=== PATIENT | female | born 1995 | race Caucasian/White ===

== ENCOUNTER 2016-11-19 15:08 | Emergency (ER) | payer OTHER ==
--- NOTE | 2016-11-19 15:39 | EDDOCDS ---
Physician Documentation [facility] Name: Ayaz Lott Age: 21 yrs Sex: Female : 1995 Arrival Date: 11/19/2016 Time: 15:08 Bed Triage 1 Private MD: Dustin Sheth D Disposition: 11/19/16 15:33 Discharged to Home/Self Care. Impression: 28 weeks gestation of . - Condition is Stable. - Discharge Instructions: Third Trimester of , [id number]. - Medication Reconciliation, Local Pharmacy Hours form. - Follow up: Emergency Department; When: As needed; Reason: Worsening of conditions. Follow up: William Taveras MD; When: at your appointment next week; Reason: Wound/Symptom Recheck, Recheck today's complaints, Continuance of care. - Problem is new. - Symptoms are unchanged. - Notes: PLEASE RETURN TO THE ER WITH ANY WORSENING SYMPTOMS. FOLLOW UP WITH DR. TAVERAS'S OFFICE ON TUESDAY AT YOUR SCHEDULED APPOINTMENT. Historical: - Allergies: Amoxicillin (Hives); - Home Meds: 1. Tylenol 500 mg Oral 1 tab as needed (Last dose: Unknown) - PMHx: none; - PSHx: D & C; Tonsillectomy; Adenoidectomy; - Immunization history: Last tetanus immunization: - up to date. - Social history: Smoking status: Patient states was never smoker of tobacco. No barriers to communication noted, Speaks appropriately for age. - Family history: Not pertinent. - Last oral intake was: now. - : The pt / caregiver states he / she is not on anticoagulants. Home medication list is obtained from the patient. - Exposure Risk Screening:: None identified. 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 4 in. (162.56 cm); Pain 0/10; 15:10 Body Mass Index 28.32 (74.84 kg, 162.56 cm) sew Trauma Score (Adult): 15:37 Eye Response: spontaneous(1); Verbal Response: oriented(1); Motor Response: obeys ml6 commands(2); Systolic BP: > 89 mm Hg(4); Respiratory Rate: 10 to 29 per min(4); Nora Score: 15; Trauma Score: 12 MDM: 15:20 Heart Tones ordered. dt4 Signatures: Paolo Wilhelm RN RN ml6 Leigha Hall PA-C PA-C dt4 MTDD
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
[2016-11-19] MEDS ORDERED: ACET50TA PO (15:59)
[2016-11-19] MEDS ORDERED: PRENTAB9 PO (15:59)
[2016-11-19] MEDS ORDERED: MACR100C3 PO (20:09)
--- NOTE | 2016-11-23 09:20 | EDDOCDS ---
Physician Documentation [facility] Name: Ayaz Lott Age: 21 yrs Sex: Female : 1995 Arrival Date: 11/19/2016 Time: 15:08 Bed Triage 1 Private MD: Dustin Sheth D Disposition: 11/19/16 15:33 Discharged to Home/Self Care. Impression: 28 weeks gestation of . - Condition is Stable. - Discharge Instructions: Third Trimester of , [id number]. - Medication Reconciliation, Local Pharmacy Hours form. - Follow up: Emergency Department; When: As needed; Reason: Worsening of conditions. Follow up: William Taveras MD; When: at your appointment next week; Reason: Wound/Symptom Recheck, Recheck today's complaints, Continuance of care. - Problem is new. - Symptoms are unchanged. - Notes: PLEASE RETURN TO THE ER WITH ANY WORSENING SYMPTOMS. FOLLOW UP WITH DR. TAVERAS'S OFFICE ON TUESDAY AT YOUR SCHEDULED APPOINTMENT. Historical: - Allergies: Amoxicillin (Hives); - Home Meds: 1. Tylenol 500 mg Oral 1 tab as needed (Last dose: Unknown) - PMHx: none; - PSHx: D & C; Tonsillectomy; Adenoidectomy; - Immunization history: Last tetanus immunization: - up to date. - Social history: Smoking status: Patient states was never smoker of tobacco. No barriers to communication noted, Speaks appropriately for age. - Family history: Not pertinent. - Last oral intake was: now. - : The pt / caregiver states he / she is not on anticoagulants. Home medication list is obtained from the patient. - Exposure Risk Screening:: None identified. 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 4 in. (162.56 cm); Pain 0/10; 15:10 Body Mass Index 28.32 (74.84 kg, 162.56 cm) sew Trauma Score (Adult): 15:37 Eye Response: spontaneous(1); Verbal Response: oriented(1); Motor Response: obeys ml6 commands(2); Systolic BP: > 89 mm Hg(4); Respiratory Rate: 10 to 29 per min(4); Nora Score: 15; Trauma Score: 12 MDM: 15:20 Heart Tones ordered. dt4 16:03 [facility] was scanned into [employer] and attached to record. jp5 16:03 [facility] Payment Agreement was scanned into [employer] and attached to record. jp5 16:03 Financial registration complete. jp5 11/20 09:34 T-Sheet-- Draft Copy was scanned into [employer] and attached to record. [facility] Signatures: Paolo Wilhelm RN RN ml6 Leigha Hall PA-C PA-C dt4 Hakeem Kaplan jp5 Vanessa Christianson [facility] The chart was reviewed and I authenticate all verbal orders and agree with the evaluation and treatment provided.Attachments: 16:03 [facility] Payment Agreement jp5 11/20 09:34 T-Sheet-- Draft Copy [facility] Chart Complete MTDD
--- NOTE | 2016-11-23 09:20 | EDDOCDS ---
Physician Documentation [facility] [place] Name: Ayaz Lott Age: 21 yrs Sex: Female : 1995 Arrival Date: 11/19/2016 Time: 15:08 Bed Triage 1 Private MD: Dustin Sheth D Disposition: 11/19/16 15:33 Discharged to Home/Self Care. Impression: 28 weeks gestation of . - Condition is Stable. - Discharge Instructions: Third Trimester of , [id number]. - Medication Reconciliation, Local Pharmacy Hours form. - Follow up: Emergency Department; When: As needed; Reason: Worsening of conditions. Follow up: William Taveras MD; When: at your appointment next week; Reason: Wound/Symptom Recheck, Recheck today's complaints, Continuance of care. - Problem is new. - Symptoms are unchanged. - Notes: PLEASE RETURN TO THE ER WITH ANY WORSENING SYMPTOMS. FOLLOW UP WITH DR. TAVERAS'S OFFICE ON TUESDAY AT YOUR SCHEDULED APPOINTMENT. Historical: - Allergies: Amoxicillin (Hives); - Home Meds: 1. Tylenol 500 mg Oral 1 tab as needed (Last dose: Unknown) - PMHx: none; - PSHx: D & C; Tonsillectomy; Adenoidectomy; - Immunization history: Last tetanus immunization: - up to date. - Social history: Smoking status: Patient states was never smoker of tobacco. No barriers to communication noted, Speaks appropriately for age. - Family history: Not pertinent. - Last oral intake was: now. - : The pt / caregiver states he / she is not on anticoagulants. Home medication list is obtained from the patient. - Exposure Risk Screening:: None identified. 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 4 in. (162.56 cm); Pain 0/10; 15:10 Body Mass Index 28.32 (74.84 kg, 162.56 cm) sew Trauma Score (Adult): 15:37 Eye Response: spontaneous(1); Verbal Response: oriented(1); Motor Response: obeys ml6 commands(2); Systolic BP: > 89 mm Hg(4); Respiratory Rate: 10 to 29 per min(4); Nora Score: 15; Trauma Score: 12 MDM: 15:20 Heart Tones ordered. dt4 16:03 [facility] was scanned into [employer] and attached to record. jp5 16:03 [facility] Payment Agreement was scanned into [employer] and attached to record. jp5 16:03 Financial registration complete. jp5 11/20 09:34 T-Sheet-- Draft Copy was scanned into [employer] and attached to record. [facility] Signatures: Paolo Wilhelm RN RN ml6 Leigha Hall PA-C PA-C dt4 Hakeem Kaplan jp5 Vanessa Christianson [facility] The chart was reviewed and I authenticate all verbal orders and agree with the evaluation and treatment provided.Attachments: 16:03 [facility] Payment Agreement jp5 11/20 09:34 T-Sheet-- Draft Copy [facility] Chart Complete MTDD
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
== END 2016-11-19 15:38 | disposition home or self-care (01) ==
LOC: M ED 15:08
DX: Z04.1 Encounter for examination and observation following transport accident (principal); Z3A.28 28 weeks gestation of pregnancy; Z88.0 Allergy status to penicillin

== ENCOUNTER 2016-11-19 15:48 | Outpatient (CLI) | payer OTHER ==
[~2016-11-19] VITALS: Ht 162.6 cm; Wt 70.0 kg
[2016-11-19 15:57] VITALS: BP 133/81
[2016-11-19] MEDS ORDERED: ACET50TA PO (15:59)
[2016-11-19] MEDS ORDERED: PRENTAB9 PO (15:59)
[2016-11-19 16:55] LABS: MEAN CORPUSCULAR HEMOGLOBIN 32.2 pg (27.0-33.0); MEAN CORPUSCULAR HGB CONC 33.7 g/dl (32.0-36.5); MEAN CORPUSCULAR VOLUME 95.5 fl (80.0-96.0); RED CELL DISTRIBUTION WIDTH 12.6 % (11.5-14.5); WHITE BLOOD COUNT 11.2 K/mm3 (4.0-10.0)
[2016-11-19 17:25] VITALS: BP 120/64
[2016-11-19 17:50] LABS: AMPHETAMINES URINE REFLEX NEGATIVE (NEGATIVE); BARBITURATES URINE REFLEX NEGATIVE (NEGATIVE); BENZODIAZEPINES URINE REFLEX NEGATIVE (NEGATIVE); COCAINE METABOLITE URINE REFLE NEGATIVE (NEGATIVE); CONTROL LINE INT CTR LINE PRESENT; METHADONE URINE REFLEX NEGATIVE (NEGATIVE); OPIATES URINE REFLEX NEGATIVE (NEGATIVE); TRICYCLIC ANTIDEPRESS UR REFL NEGATIVE (NEGATIVE)
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
[2016-11-19 18:35] VITALS: BP 123/72
[2016-11-19] MEDS ORDERED: NITROFURANTOIN (MACROBID) 100 MG CAP PO ONE (18:45)
[2016-11-19 19:16] VITALS: BP 118/64
[2016-11-19] MEDS ORDERED: MACR100C3 PO (20:09)
[2016-11-20] MEDS ORDERED: NITROFURANTOIN (MACROBID) 100 MG CAP PO SCH (09:00)
== END 2016-11-19 20:10 | disposition home or self-care (01) ==
LOC: M LDO 15:48
PROVIDERS: ATTEND Advanced Practice Midwife
DX: Z04.3 Encounter for examination and observation following other accident (principal); O08.83 Urinary tract infection following an ectopic and molar pregnancy; O32.1XX1 Maternal care for breech presentation, fetus 1; Z3A.28 28 weeks gestation of pregnancy

== ENCOUNTER → 2017-01-05 | Outpatient (REF) | payer OTHER ==
[~2017-01-05] MED LIST: ACET50TA PO; MACR100C3 PO; PRENTAB9 PO
== END ==
LOC: M LAB REF 12:20
PROVIDERS: ATTEND Physician Assistant
DX: J20.9 Acute bronchitis, unspecified (principal)

== ENCOUNTER → 2017-01-18 | Outpatient (REF) | payer OTHER | LOC: M LAB REF 12:22 | PROVIDERS: ATTEND Advanced Practice Midwife | DX: Z34.83 Encounter for supervision of other normal pregnancy, third trimester (principal) ==

== ENCOUNTER 2017-02-10 05:22 | Inpatient (IN) | payer OTHER ==
[~2017-02-10] VITALS: Ht 162.6 cm; Wt 84.0 kg
[2017-02-10] VITALS (7 sets, daily range): BP systolic 120–144; BP diastolic 63–83
[2017-02-10] MEDS ORDERED: TUMS500C PO (05:25)
[2017-02-10] MEDS ORDERED: LR 800 ML IV ONE (06:00)
[2017-02-10] MEDS ORDERED: LR 1,000 ML IV SCH ×2 (06:00→08:45)
[2017-02-10] MEDS ORDERED: BICITRA 30ML SOLN UDC PO ONE (06:00)
[2017-02-10] MEDS ORDERED: CLINDAMYCIN 900 MG in APPROPRIATE DILUENT 1 EA IV ONE (06:00)
[2017-02-10 06:01] LABS: MEAN CORPUSCULAR HEMOGLOBIN 30.4 pg (27.0-33.0); MEAN CORPUSCULAR HGB CONC 33.6 g/dl (32.0-36.5); MEAN CORPUSCULAR VOLUME 90.6 fl (80.0-96.0); RED CELL DISTRIBUTION WIDTH 14.4 % (11.5-14.5); WHITE BLOOD COUNT 7.1 K/mm3 (4.0-10.0)
[2017-02-10] MEDS ORDERED: MORPHINE PRES-FREE INJ 10 MG/10 ML VIAL (J2274) As Ordered ONE (08:00)
[2017-02-10] MEDS ORDERED: ONDANSETRON 4MG/2ML VIAL (J2405) As Ordered ONE (08:01)
[2017-02-10] MEDS ORDERED: KETOROLAC 60 MG/2 ML VIAL (J1885) As Ordered ONE (08:01)
[2017-02-10 08:19] LABS: CORD GAS ABE A -2.3; CORD GAS PCO2 A 54.4 mmHg; CORD GAS PH A 7.285 UNITS; CORD GAS SBC A 20.7 MEQ/L; CORD GAS TCO2 A 26.9 MEQ/L
[2017-02-10 08:20] LABS: CORD GAS HCO3 A 25.3 MEQ/L; CORD GAS O2 SAT A 20.4 %
[2017-02-10 08:21] LABS: CORD GAS ABE V -3.4; CORD GAS HCO3 V 22.3 MEQ/L; CORD GAS O2 SAT V 69.2 %; CORD GAS PCO2 V 42.3 mmHg; CORD GAS PH V 7.34 UNITS; CORD GAS PO2 V 29.8 mmHg; CORD GAS TCO2 V 23.6 MEQ/L
[2017-02-10] MEDS: LR 1,000 ML IV SCH ×2 (08:25→17:24)
[2017-02-10] MEDS ORDERED: MOM 30ML SUSPENSION UDC PO PRN (08:30)
[2017-02-10] MEDS ORDERED: MEASLES,MUMPS,RUBELLA VACCINE INJ (MMR-II) (90707) SC SCH (08:30)
[2017-02-10] MEDS ORDERED: RHOGAM 300 MCG (1500 IU) INJ (J2790) IM SCH (08:30)
[2017-02-10] MEDS ORDERED: ONDANSETRON 4MG/2ML VIAL (J2405) IV PRN ×2 (08:30→08:45)
[2017-02-10] MEDS ORDERED: METHYLERGONOVINE MALEATE 0.2 MG TAB PO PRN (08:30)
[2017-02-10] MEDS ORDERED: NORCO, ANEXSIA 5/325MG TABLET (HYDROcodone/ACETAMINOPHEN) PO PRN ×2 (08:30)
[2017-02-10] MEDS ORDERED: PERCOCET 5MG/325MG TAB PO PRN (08:45)
[2017-02-10] MEDS ORDERED: fentaNYL 100 MCG/2 ML INJECTION (J3010) IV PRN (08:45)
[2017-02-10] MEDS: DOCUSATE SODIUM 100 MG CAP PO SCH ×2 (09:00→20:25)
[2017-02-10] MEDS: PRENATAL VITAMIN TAB PO SCH (09:00)
--- NOTE | 2017-02-10 09:19 | HPE ---
DATE OF ADMISSION: 02/10/2017 Ayaz is a 21-year-old female 2, para 0-0-2-0 with an estimated date of confinement (EDC) of 02/14/2017, estimated gestational age 39+ weeks gestation. The patient has been monitored for breech presentation. She had declined external version and wanted to proceed with a primary section. On admission, no bleeding. No leakage of fluid. The patient was rechecked and confirmed to be breech. Maternal record reviewed, which is essentially unremarkable. laboratories: Blood type is O+, rubella immune, hepatitis negative, HIV negative, GC and chlamydia negative, 1-hour sugar testing was within normal limits. Group B streptococcus (GBS) is negative. PAST MEDICAL HISTORY: Denies. PAST SURGICAL HISTORY: Tonsillectomy in 2009, dilatation and curettage times two. SOCIAL HISTORY: She denies any alcohol or drug use. Former smoker. FAMILY HISTORY: Significant for thyroid disease and amyotrophic lateral sclerosis (ALS). MEDICATIONS: vitamin ALLERGIES: AMOXICILLIN. PHYSICAL EXAMINATION: Normal-appearing female in no acute distress. ABDOMEN: Soft, nontender, nondistended. EXTREMITIES: No clubbing, cyanosis or edema. Vaginal exam deferred. Fetus position rechecked and still found to be in breech presentation. ASSESSMENT: 1. Intrauterine at 39+ weeks gestation. 2. Breech presentation. 3. Primary section. PLAN: Admit to labor and delivery. Routine lab reviewed. Awaiting operating room for primary low transverse section.
--- NOTE | 2017-02-10 10:05 | RO ---
DATE OF PROCEDURE: 02/10/2017 Ayaz is a 21-year-old female 3, para 0-0-2-0 who was admitted at 39+ weeks gestation in breech presentation after requesting a primary section. PREOPERATIVE DIAGNOSIS: Term in breech presentation for primary cyst section. POSTOPERATIVE DIAGNOSIS: Term in breech presentation for primary cyst section. PROCEDURE: Primary low transverse section via breech extraction. SURGEON: Dr. William Taveras. POUCH MAKING MACHINE OPERATOR: Jeniffer Amor CNM ANESTHESIA: Spinal . COMPLICATIONS: None. ESTIMATED BLOOD LOSS: 500 mL. FINDINGS: Live female infant in adriana breech position with a nuchal cord times two. 8 and 9. weight 6 pounds 15 ounces. Normal-appearing placenta. Normal ovaries and tubes. DESCRIPTION OF PROCEDURE: After obtaining informed consent, the patient was taken to the operating room where spinal anesthetic was found to be adequate. She was then draped and prepped usual sterile fashion in the supine position. At this point, Pfannenstiel incision was made. This was carried down to the fascia. Fascia was incised in midline fashion and carried through laterally. Superior aspect of the fascia then grasped with two Bailee clamps, tented off and dissected off the rectus muscles sharply. The inferior aspect was dissected off in a similar fashion. Rectus muscles in a midline fashion. Perineum identified. Peritoneal cavity entered bluntly. Superior and inferior dissection the peritoneum was then done with good visualization of the bladder. At this point a Mobius skin retractor was placed and a low-transverse uterine incision was made. Infant was delivered via breech extraction, nuchal cord reduced. Cord doubly clamped and cut and infant was handed over to the waiting warmer. Cord blood and cord gas was sent. Placenta removed manually. Uterus cleared of all clot and debris and uterine incision was then repaired in two separate layers of 0 Vicryl sutures. Pelvis was then copiously irrigated with normal saline and suctioned out. Attention turned to the peritoneum, which was closed in a running fashion using #2-0 Vicryl. Fascia closed in two separate segment of 0 Vicryl sutures and the skin was reapproximated in subcuticular fashion using #3-0 Vicryl on a Dinesh. Steri-Strips placed. The patient tolerated procedure well. She was then transferred to recovery room in stable condition.
[2017-02-10] MEDS: IBUPROFEN 800 MG TAB PO SCH (17:25)
[2017-02-11] MEDS: IBUPROFEN 800 MG TAB PO SCH ×4 (00:02→23:48)
[2017-02-11] MEDS: LR 1,000 ML IV SCH (00:25)
[2017-02-11 01:49] VITALS: BP 137/61
[2017-02-11 05:44] VITALS: BP 134/77
[2017-02-11 07:06] LABS: MEAN CORPUSCULAR HEMOGLOBIN 29.7 pg (27.0-33.0); MEAN CORPUSCULAR HGB CONC 32.1 g/dl (32.0-36.5); MEAN CORPUSCULAR VOLUME 92.5 fl (80.0-96.0); RED CELL DISTRIBUTION WIDTH 14.6 % (11.5-14.5); WHITE BLOOD COUNT 7.4 K/mm3 (4.0-10.0)
[2017-02-11] MEDS: DOCUSATE SODIUM 100 MG CAP PO SCH ×2 (08:03→21:20)
[2017-02-11] MEDS: PRENATAL VITAMIN TAB PO SCH (08:03)
[2017-02-11 10:18] VITALS: BP 128/71
[2017-02-11 14:00] VITALS: BP 123/76
[2017-02-11 18:14] VITALS: BP 141/79
[2017-02-11 22:18] VITALS: BP 135/82
[2017-02-12 05:48] VITALS: BP 129/63
[2017-02-12] MEDS: IBUPROFEN 800 MG TAB PO SCH (08:04)
[2017-02-12] MEDS: DOCUSATE SODIUM 100 MG CAP PO SCH (08:04)
[2017-02-12] MEDS: PRENATAL VITAMIN TAB PO SCH (08:04)
[2017-02-12] MEDS ORDERED: IBUP80TA PO (08:40)
[2017-02-12] MEDS ORDERED: LORT5TAB PO (08:55)
--- NOTE | 2017-02-12 08:58 | DSES ---
DATE OF ADMISSION: 02/10/2017 DATE OF DISCHARGE: A 21-year-old 3, now para 1-0-2-1, admitted 02/10/[address] Taveras at 39 weeks' gestation for primary for breech presentation. Postoperative course has been uneventful. She is out of bed independently, tolerating regular diet, voiding, and bowels moved. She reports adequate pain management with by mouth ibuprofen only. At present, she declined to take Percocet due to a history of an extreme sedative reaction. Vital signs are stable 98.8, 129/63. CBC is stable, 7.4 white cells, hemoglobin and hematocrit 9.2 and 28.8, and 228 of platelets. Breasts are soft. She is bottle-feeding. Fundus is firm, nontender. Wound is well approximated without signs and symptoms of infection, bleeding, or dehiscence. Steri-Strips are intact. Lochia rubra is scant without odor. Legs are negative. ASSESSMENT: Postoperative day #2. Ready for discharge. PLAN: Home. Routine precautions. Prescription sent for Motrin 100 mg every 8 hours to [facility]. Warnings reviewed. Instructed to return to the office in 2 weeks and 6 weeks.
== END 2017-02-12 10:20 | disposition home or self-care (01) | DRG 540 ==
LOC: M LDI 05:22 → M OBS 10:04
PROVIDERS: ADMIT Obstetrics & Gynecology; ATTEND Obstetrics & Gynecology
PROC: 10D00Z1 Extraction of Products of Conception, Low, Open Approach (ICD-10-PCS; principal; 2017-02-10 07:30)
DX: O32.1XX0 Maternal care for breech presentation, not applicable or unspecified (principal); Z3A.39 39 weeks gestation of pregnancy; O69.81X0 Labor and delivery complicated by cord around neck, without compression, not applicable or unspecified; Z37.0 Single live birth; Z88.5 Allergy status to narcotic agent; Z87.891 Personal history of nicotine dependence

== ENCOUNTER → 2017-05-01 | Outpatient (REF) | payer OTHER ==
[~2017-05-01] MED LIST changes: +IBUP80TA PO; +LORT5TAB PO; +TUMS500C PO
== END ==
LOC: M LAB REF 19:55
PROVIDERS: ATTEND Physician Assistant Medical
DX: J02.9 Acute pharyngitis, unspecified (principal)

== ENCOUNTER → 2017-10-07 | Outpatient (REF) | payer OTHER ==
[~2017-10-07] MED LIST changes: -MACR100C3 PO; +MACR100C43 PO
== END ==
LOC: M LAB REF 19:42
PROVIDERS: ATTEND Physician Assistant Medical
DX: J02.9 Acute pharyngitis, unspecified (principal)

== ENCOUNTER 2018-03-11 15:45 | Emergency (ER) | payer OTHER ==
[2018-03-11] MEDS: NORCO, ANEXSIA 5/325MG TABLET (HYDROcodone/ACETAMINOPHEN) PO (17:08)
[2018-03-11] MEDS: METHOCARBAMOL 500 MG TAB PO (17:09)
== END 2018-03-11 18:12 | disposition home or self-care (01) ==
LOC: M ED 15:45
DX: M54.12 Radiculopathy, cervical region (principal); Z88.0 Allergy status to penicillin
CPT/HCPCS: 72125

== ENCOUNTER → 2018-05-29 | Outpatient (REF) ==
[2018-05-30 14:48] LABS: RUBEOLA IgG ANTIBODY >300.0 AU/mL (Immune >29.9)
== END ==
LOC: M LAB 11:27
DX: Z02.1 Encounter for pre-employment examination (principal)

== ENCOUNTER 2018-07-17 19:48 | Emergency (ER) | payer OTHER | END 2018-07-17 22:02 | disposition left against medical advice (07) | LOC: M ED 22:02 | DX: R10.9 Unspecified abdominal pain (principal); Z53.21 Procedure and treatment not carried out due to patient leaving prior to being seen by health care provider ==

== ENCOUNTER → 2018-09-22 | Outpatient (REF) | payer OTHER | LOC: M LAB REF 13:18 | DX: N30.00 Acute cystitis without hematuria (principal) ==

== ENCOUNTER 2019-02-17 03:46 | Emergency (ER) | payer OTHER ==
[~2019-02-17] VITALS: Ht 162.6 cm; Wt 68.2 kg
[~2019-02-17 03:46] MED LIST changes: -ACET50TA PO; +KETO10TAB PO; +MAPA500T2 PO; +ROBA500T PO
[2019-02-17 03:47] VITALS: BP 111/66
[2019-02-17] MEDS ORDERED: [UNRECOGNIZED DRUG - CODE] PO (03:56)
[2019-02-17] MEDS ORDERED: CLAR1CHW2 PO (03:56)
== END 2019-02-17 05:32 | disposition left against medical advice (07) ==
LOC: M ED 03:46
DX: J02.9 Acute pharyngitis, unspecified (principal); Z53.21 Procedure and treatment not carried out due to patient leaving prior to being seen by health care provider

== ENCOUNTER → 2019-06-06 | Outpatient (REF) | payer OTHER ==
[~2019-06-06] MED LIST changes: +CLAR1CHW2 PO; +[UNRECOGNIZED DRUG - CODE] PO
[2019-06-06 21:53] LABS: APPEARANCE, URINE HAZY (CLEAR); BACTERIA, URINE AUTO 2+ (NEGATIVE); BILIRUBIN, URINE AUTO NEGATIVE (NEGATIVE); BLOOD, URINE BLOOD 3+ (NEGATIVE); COLOR, URINE YELLOW (YELLOW); GLUCOSE, URINE (UA) AUTO NEGATIVE (NEGATIVE); KETONE, URINE AUTO NEGATIVE (NEGATIVE); LEUKOCYTE ESTERASE, URINE AUTO 1+ (NEGATIVE); NITRITE, URINE AUTO NEGATIVE (NEGATIVE); PROTEIN, URINE AUTO NEGATIVE (NEGATIVE); RBC, URINE AUTO 178 /HPF (0-3); SPECIFIC GRAVITY URINE AUTO 1.012 (1.002-1.035); SQUAMOUS EPITHELIAL CELL UR AU 3 /HPF (0-6); UROBILINOGEN, URINE AUTO 0.2 mg/dL (0.0-2.0); WBC, URINE AUTO 20 /HPF (0-3)
== END ==
LOC: M LAB REF 09:57
PROVIDERS: ATTEND Physician Assistant
DX: N39.0 Urinary tract infection, site not specified (principal)

== ENCOUNTER → 2019-07-13 | Outpatient (CLI) | payer OTHER ==
--- NOTE | 2019-07-13 14:36 | REP ---
Right knee five views : There is no fracture or dislocation. Mineralization and joint spaces are normal. There are no calcifications or foreign bodies. Impression: Negative right knee . Electronically Signed by Santiago Elizabeth MD 07/13/2019 02:28 P
== END ==
LOC: M ADAMS 11:36
PROVIDERS: ATTEND Physician Assistant Medical
DX: M25.561 Pain in right knee (principal)

== ENCOUNTER → 2019-10-30 | Outpatient (REF) | payer OTHER | LOC: M LAB REF 12:17 | PROVIDERS: ATTEND Physician Assistant Medical | DX: J02.9 Acute pharyngitis, unspecified (principal) ==

== ENCOUNTER → 2020-05-31 | Outpatient (CLI) | payer OTHER ==
--- NOTE | 2020-05-31 10:49 | REP ---
ANKLE: REASON: Trauma. COMPARISON: No priors. FINDINGS: No acute fracture or destructive osseous lesion. The mortise is intact. Electronically Signed by Seferino Herr DO 05/31/2020 10:59 A
== END ==
LOC: M WUC 09:07
PROVIDERS: ATTEND Physician Assistant
DX: S90.01XA Contusion of right ankle, initial encounter (principal); X58.XXXA Exposure to other specified factors, initial encounter; Y92.89 Other specified places as the place of occurrence of the external cause

== ENCOUNTER 2021-10-23 02:38 | Emergency (ER) | payer OTHER ==
[~2021-10-23] VITALS: Ht 162.6 cm; Wt 77.3 kg
[2021-10-23 02:39] VITALS: BP 125/76
--- OUTSIDE RECORDS SUMMARY | 2021-10-23 02:47 | CCD ---
Author Author [facility] Organization [facility] Address Unknown Phone Unavailable Support Name Relationship Address Phone [place] DARION Next Of Kin [phone] [place] ET[place]VINA Next Of Kin [address] [phone] BRYAN PARKER Next Of Kin [address] [place] [address] UE Next Of Kin Unknown Unavailable KYUNG RICK Next Of Kin [address] [place] [address] Re-disclosure Warning The records that you are about to access may contain information from federally-assisted alcohol or drug abuse programs. If such information is present, then the following federally mandated warning applies: This information has been disclosed to you from records protected by federal confidentiality rules (42 CFR part 2). The federal rules prohibit you from making any further disclosure of this information unless further disclosure is expressly permitted by the written consent of the person to whom it pertains or as otherwise permitted by 42 CFR part 2. A general authorization for the release of medical or other information is NOT sufficient for this purpose. The Federal rules restrict any use of the information to criminally investigate or prosecute any alcohol or drug abuse patient.The records that you are about to access may contain highly sensitive health information, the redisclosure of which is protected by Article 27-F of the [place] State Public Health law. If you continue you may have access to information: Regarding HIV / AIDS; Provided by facilities licensed or operated by the [facility] Office of Mental Health; or Provided by the [facility] Office for People With Developmental Disabilities. If such information is present, then the following [facility] mandated warning applies: This information has been disclosed to you from confidential records which are protected by state law. State law prohibits you from making any further disclosure of this information without the specific written consent of the person to whom it pertains, or as otherwise permitted by law. Any unauthorized further disclosure in violation of state law may result in a fine or senior care sentence or both. A general authorization for the release of medical or other information is NOT sufficient authorization for further disc losure. Family History Family Member Name Family Member Gender Family Member Status Date o f Status Description Data Source(s) Unknown Unknown Problem [facility] ([facility]) Unknown Male Problem [facility] ([facility]) Immunizations Vaccine Date Status Description Data Source(s) COVID-19 VACCINE Pfizer 07/20/2021 12:00:00 AM EDT completed [facility] Vaccine Series Complete: YESThis Data wa s Submitted to [facility] Via [employer]. COVID-19 VACC, MRNA(PFIZER)/PF 06/29/2021 12:00:00 AM EDT completed [facility] COVID-19 VACCINE Pfizer 06/29/2021 12:00:00 AM EDT completed [facility] Vaccine Series Complete: NOThis Data was Submitted to [facility] Via [employer]. Medications Medication Brand Name Start Date Product Form Dose Route Admi nistrative Instructions Pharmacy Instructions Status Indications Reaction Description Data Source(s) Vienva 28 Day Kit 0.1-20 mg-mcg LEVONORGESTREL/ETHIN.ESTRADI OL 10/14/2021 12:00:00 AM EST tablet 84 TAKE ONE TABLET BY MOUTH EVERY DAY TAKE ONE TABLET BY MOUTH EVERY DAY SOLD: 10/15/2021 [facility] 50 mcg/actuation 04/17/2021 12:00:00 AM EDT spray,suspension 16 SPRAY TWO SPRAYS IN EACH NOSTRIL ONCE DAILY SPRAY TWO SPRAYS IN EACH NOSTRIL ONCE DAILY SOLD: 04/20/2021 [facility] Insurance Providers Payer name Policy type / Coverage type Policy ID Covered alliance party ID Covered alliance party's relationship to cleary Policy Cleary Plan Information [facility] PLAN [facility] [id number] SP [id number] [facility] [id number] SP [id number] [facility] [id number] SP [id number] [facility] Community Plan Commercial [id number] Self [id number] [employer] [place] [id number] Self [id number] [facility] Maintenance [facility] ([facility] [id number] Self [id number] [facility] Maintenance [facility] ([facility] [id number] Self [id number] [facility] Maintenance [facility] ([facility] [id number] Self [id number] [facility] Health Maintenance [facility] ([facility] [id number] Self O UNAVAILABLE UNAVAILA BLE OTHER NO FAULT [id number] [place] [id number] [facility] COMMUNITY PLAN [facility] [id number] SP [id number] MEDICAID [id number] SP [id number] [facility] O [id number] S [id number] [facility] Health Maintenance Organization ([facility] [id number] Self [id number] [facility] Health Maintenance [facility] ([facility] [id number] Self [id number] Problems, Conditions, and Diagnoses No Information Surgeries/Procedures No Information Results No Information Social History No Information
[2021-10-23] MEDS ORDERED: VIEN1TAB (02:54)
--- OUTSIDE RECORDS SUMMARY | 2021-10-23 05:35 | CCD ---
Author Author [facility] Organization [facility] Address Unknown Phone Unavailable Support Name Relationship Address Phone [place] D[place] Next Of Kin [address] [place] ETELVINA Next Of Kin [address] [address] BRYAN PARKER Next Of Kin [address] [place] [address] UE Next Of Kin Unknown Unavailable KYUNG RICK Next Of Kin [address] [place] [address] Re-disclosure Warning The records that you are [...] is protected by Article 27-F of the [place] State Public Health law. If you continue you may have access to information: Regarding HIV / AIDS; Provided by facilities licensed or operated by the [facility] Office of Mental Health; or Provided by the [facility] Office for People With Developmental Disabilities. If such information is present, then the following [facility] mandated warning applies: This information has been [...] law may result in a fine or usp sentence or both. A general authorization for [...] Complete: YESThis Data wa s Submitted to [facility] Via [employer]. COVID-19 VACC, MRNA(PFIZER)/PF 06/29/2021 12:00:00 AM EDT completed [facility] COVID-19 VACCINE Pfizer 06/29/2021 12:00:00 AM EDT completed [facility] Vaccine Series Complete: NOThis Data was Submitted to [facility] Via [employer]. Medications Medication Brand Name Start Date Product [...] type / Coverage type Policy ID Covered republican ID Covered republican's relationship to cleary Policy Cleary Plan Information [facility] PLAN [facility] [id number] SP [id number] [facility] PLAN [facility] [id number] SP [id number] [facility] [id number] SP [id number] [facility] Community Plan Commercial [id number] Self [id number] [employer]Community [facility] ([facility] [id number] Self [id number] [facility] Maintenance [facility] ([facility]) [id number] Self [id number] [facility] Maintenance [facility] ([facility]) [id number] Self [id number] [facility] Health Maintenance [facility] ([facility]) [id number] Self [id number] [facility] Health Maintenance [facility] ([facility]) [id number] Self O UNAVAILABLE UNAVAILA BLE OTHER NO FAULT [id number] SP [id number] [facility] COMMUNITY PLAN [facility] [id number] SP [id number] MEDICAID [id number] SP [id number] [facility] O [id number] S [id number] [facility] Health Maintenance Organization ([facility]) [id number] Self [id number] [facility] Health Maintenance [facility] ([facility]) [id number] Self [id number] Problems, Conditions, and Diagnoses No Information Surgeries/Procedures No Information Results No Information Social History No Information
== END 2021-10-23 03:30 | disposition left against medical advice (07) ==
LOC: M ED 02:38
DX: Z53.21 Procedure and treatment not carried out due to patient leaving prior to being seen by health care provider (principal)

== ENCOUNTER → 2024-10-04 | Outpatient (REF) | payer OTHER ==
[~2024-10-04] MED LIST changes: +VIEN1TAB
== END ==
LOC: M LAB REF 12:20
PROVIDERS: ATTEND Physician Assistant
DX: B34.9 Viral infection, unspecified (principal)

== ENCOUNTER → 2025-10-02 | Outpatient (REF) | payer OTHER ==
[~2025-10-02] MED LIST changes: -CLAR1CHW2 PO; +LORA5TAB15 PO
== END ==
LOC: M LAB REF 18:39
PROVIDERS: ATTEND Physician Assistant
DX: J03.90 Acute tonsillitis, unspecified (principal)